=== PATIENT | female | born 1965 | race Caucasian/White ===

== ENCOUNTER 2017-11-08 18:37 | Emergency (ER) | payer OTHER ==
[~2017-11-08] VITALS: Ht 162.6 cm; Wt 80.8 kg
[~2017-11-08 18:37] MED LIST: ACETAMINOPHEN325 M1 PO; ACTHAR INJECTION; ADVAIR HFA115 MCG/21 INH; ALBUTEROL; ALBUTEROL2.5 MG/0.5 INH; ALBUTEROL2.5 MG/3 M INH; AMILORIDE HCL-1 EACH PO; AMITRIPTYLINE H10 M3 PO; ATIVAN0.5 MG PO; AUGMENTIN 875875 MG PO; BACTRIM DS TAB1 EACH; BACTRIM DS TAB1 EACH PO; CARISOPRODOL 3350 MG PO; COUMADIN 1MG TAB1 M1 PO; COUMADIN 5 MG TA5 M1 PO; COUMADIN7.5 MG PO; COZAAR 25 MG TA25 M1 PO; CRESTOR10 MG PO; CYTOXAN; DELTASONE20 MG PO; DUONEB 2.5-0.5 M3 ML INH; ENOXAPARIN80 MG/0.1 INJECTION; EPIPEN 2-P0.3 MG/0.3 INJECTION; FEVERALL JR 32325 M1 RECTAL; FLEXERIL PO; FUROSEMIDE 40 M40 M1 PO; HYDROCODON-ACE1 EAC7 PO; HYDROCODON-ACE1 EACH PO; HYDROCODONE-AP1 EAC6 PO; HYDROXYZINE PAM25 M1 PO; KEFLEX500 MG PO; KRILL OIL500 MG PO; LASIX 20 MG TAB20 MG PO; LEVAQUIN 500 M500 M2 PO; LIDODERM 5%1 PATC1 TRANSDERM; LIPITOR 20 MG T20 M1; MACRODANTIN50 MG PO; MEDROLDOSEPACK PO; MODURETIC; NEURONTIN 300300 M1 PO; NORCO 5-325 TA1 EACH PO; OLANZAPINE2.5 MG PO; PEPCID20 MG PO; POTASSIUM20 PO; PREDNISONE 10 M10 M1 PO; PREDNISONE 20 M20 MG PO; PREDNISONE10 MG PO; PREMPHASE 0.621 EAC1 PO; PROZAC 20 MG20 MG PO; PROZAC20 MG PO; PROZAC40 MG PO; ROBAXIN 750 MG750 M1 PO; SOMA350 MG PO; TACROLIMUS1 MG; TOBREX5 ML OP; TORADOL 10 MG T10 MG PO; TUMS EX; TUMS PO; URELLE PO; URELLE TABLET1 TAB PO; VENTOLIN HFA 1818 GM INH; VISTARIL 25 MG25 M1 PO; VITAMIN D 5050000 I1 PO; VITAMIN D1000 UNI1 PO; VIVELLE-DOT1 EAC1 TD; ZETIA10 MG; ZPAK PO; ZYRTEC10 MG PO
[2017-11-08] MEDS ORDERED: ALLOPURINOL 10100 M1 PO (18:59)
[2017-11-08] MEDS ORDERED: CYCLOPHOSPHAMID50 MG PO (19:00)
[2017-11-08] MEDS ORDERED: SUPARTZ FX10 MG/1 ML IU (19:04)
[2017-11-08] MEDS ORDERED: TRAZODONE 150150 M1 PO (19:05)
[2017-11-08] MEDS ORDERED: TIZANIDINE HCL4 M1 PO (19:05)
[2017-11-08] MEDS ORDERED: CLONAZEPAM 0.50.5 M1 PO (19:05)
[2017-11-08] MEDS ORDERED: LATUDA60 MG PO (19:06)
[2017-11-08] MEDS ORDERED: PREDNISONE 10 M10 MG PO (19:06)
[2017-11-08 19:49] LABS: HEMATOCRIT 28.5 % (37.0-47.0); MCH 35.5 pg (26.0-34.0); MCHC 35.2 g/dL (28.0-37.0); MCV 100.8 fL (80.0-100.0); MPV 7.3 fl. (7.2-11.1); NUCLEATED RBCS 0 /100WBC; PLATELET COUNT* 134 thou/uL (150-400); RBC 2.82 mil/uL (4.20-5.00); RDW-CV 16.5 % (10.5-14.5); WBC 2.2 thou/uL (4.0-11.0)
[2017-11-08 20:06] LABS: CALCIUM 9.4 mg/dL (8.5-10.1); CREATININE 1.8 mg/dL (0.6-1.3); POTASSIUM 3.7 mmol/L (3.5-5.1)
[2017-11-08 20:10] LABS: INR 1.3; PROTIME 13.1 Seconds (9.20-11.50)
[2017-11-08 20:11] LABS: ALBUMIN 3.9 g/dL (3.4-5.0); TOTAL BILIRUBIN 0.5 mg/dL (<0.1-1.0); TOTAL PROTEIN 7.5 g/dL (6.4-8.2)
[2017-11-08 20:14] LABS: ABSOLUTE LYMPHOCYTES 0.1 thou/uL (0.8-5.3); ABSOLUTE MONOCYTES 0.2 thou/uL (0.0-1.2); ABSOLUTE NEUTROPHILS 1.9 thou/uL (1.6-8.1); ATYPICAL LYMPHS 2 %; METAMYELOCYTES 1 %
[2017-11-08 20:15] LABS: ANISOCYTOSIS 1+; LARGE PLATELETS OCCASIONAL; PLATELET ESTIMATE DECREASED; POIKILOCYTOSIS 1+; POLYCHROMASIA 1+; TEARDROPS 1+
[2017-11-08 21:32] LABS: URINE BILIRUBIN NEGATIVE (Negative); URINE BLOOD TRACE (Negative); URINE CLARITY CLEAR; URINE COLOR YELLOW; URINE GLUCOSE-RANDOM NEGATIVE (Negative); URINE KETONES NEGATIVE (Negative); URINE LEUKOCYTES-REFLEX NEGATIVE (Negative); URINE NITRITE-REFLEX NEGATIVE (Negative); URINE PROTEIN 1+ (Negative); URINE UROBILINOGEN 0.2 E.U./dl (0.2-1.0)
[2017-11-08 23:44] VITALS: BP 108/75
== END 2017-11-08 23:45 | disposition home or self-care (01) ==
LOC: M.ERS 18:37
PROVIDERS: Personal Emergency Response Attendant
DX: N04.9 Nephrotic syndrome with unspecified morphologic changes (principal); D72.819 Decreased white blood cell count, unspecified; F41.9 Anxiety disorder, unspecified; M10.9 Gout, unspecified; G89.29 Other chronic pain; M25.569 Pain in unspecified knee; Z87.891 Personal history of nicotine dependence; Z88.5 Allergy status to narcotic agent